=== PATIENT | male | born 1935 | race Caucasian/White ===

== ENCOUNTER 2017-10-18 07:46 | Emergency (ER) | payer MEDICARE ==
[2017-10-18 09:30] LABS: INR-International Normal Ratio 1.3; PTT 32.1 SEC (22.9-36.1); Prothrombin Time 16.1 SEC (12.0-14.7)
[2017-10-18 09:33] LABS: #Basophils 0.1 thou/uL (0.0-0.2); #Eosinphils 0.7 thou/uL (0.0-0.7); #Lymphocytes 4.3 thou/uL (1.20-3.40); #Neutrophils 4.9 thou/uL (1.40-6.50); %Basophils 0.5 % (0.0-1.0); %Eosinophils 6.8 % (0.0-10.0); %Lymphocytes 39.1 % (21.0-51.0); %Neutrophils 44.6 % (42.0-75.0); Hemoglobin 12.7 g/dL (14.0-18.0); Mean Corpuscular Hemoglobin 30.7 pg (27.0-31.0); Mean Corpuscular Volume 93.1 fl (80.0-94.0); Mean Platelet Volume 9.3 fL (7.4-10.4); Platelet Count 113 thou/uL (130-400); Red Blood Cell (RBC) Count 4.13 mill/uL (4.70-6.10); White Blood Cell (WBC) Count 10.9 thou/uL (4.8-10.8)
[2017-10-18 09:38] LABS: ALT (SGPT) 7 U/L (8-55); AST (SGOT) 17 U/L (5-34); Albumin 3.3 g/dL (3.4-4.8); Alkaline Phosphatase 45 U/L (40-150); Anion Gap 12 mmol/L (10-20); BUN (Urea Nitrogen) 18 mg/dL (8.4-25.7); Bilirubin, Total 0.6 mg/dL (0.2-1.2); Calc. Creatinine Clearance 0 mL/min (70-130); Calcium 9.2 mg/dL (7.8-10.44); Carbon Dioxide 29 mmol/L (23-31); Chloride 102 mmol/L (98-107); Estimated GFR-MDRD 67; Globulin 3.4 g/dL (2.4-3.5); Glucose 66 mg/dL (83-110); Potassium 4.8 mmol/L (3.5-5.1); Protein, Total 6.7 g/dL (5.8-8.1); Sodium 138 mmol/L (136-145)
--- NOTE | 2017-10-18 10:36 | RAD ---
RIGHT HIP 2 VIEWS: Date: 10/18/17 HISTORY: 81-year-old male with history of right hip pain, witnessed fall 3 days ago. FINDINGS: No evidence for acute fracture. Prominent vascular calcifications. Extensive postop changes in the pe lvis. Right hip joint arthrosis. IMPRESSION: Degenerative changes without fracture or dislocation. POS: [facility]
--- NOTE | 2017-10-18 10:37 | RAD ---
AP PELVIS 1 VIEW: Date: 10/18/17 HISTORY: Right hip pain, witnessed fall 3 days ago. COMPARISON: 09/19/16. FINDINGS: Degenerative changes of both hip joints and SI joints. Postsurgical changes in the pelvis. There are some nodular opacities overlying the left pelvis, which I feel are probably artifactual. IMPRESSION: Degenerative changes without fracture or dislocation. POS: [facility]
--- NOTE | 2017-10-18 10:41 | RAD ---
LEFT HIP 2 VIEWS: Date: 10/18/17 HISTORY: 81-year-old male with history of left hip pain with witnessed fall several days ago. FINDINGS: There is some nodular opacity overlying the left pelvis and hip region which is felt to probably be a rtifactual. Prominent vascular calcifications. Bone demineralization. Degenerative changes left hip j oint. No acute left hip fracture. IMPRESSION: No acute fracture. Degenerative changes. POS: [facility]
== END 2017-10-18 10:48 ==
LOC: ERS 07:46
DX: M16.11 Unilateral primary osteoarthritis, right hip (principal); F03.90 Unspecified dementia, unspecified severity, without behavioral disturbance, psychotic disturbance, mood disturbance, and anxiety; W07.XXXA Fall from chair, initial encounter
CPT/HCPCS: 36415; 72170; 80053; 85025; 85610; 85730; 86850; 86900; 86901

== ENCOUNTER 2018-05-30 13:41 | Observation (INO) | payer MEDICARE, MEDICAID ==
[2018-05-30 14:41] LABS: #Basophils 0.1 thou/uL (0.0-0.2); #Lymphocytes 4.7 thou/uL (1.20-3.40); #Monocytes 0.8 thou/uL (0.11-0.59); #Neutrophils 6.5 thou/uL (1.40-6.50); %Basophils 0.5 % (0.0-1.0); %Eosinophils 7.8 % (0.0-10.0); %Monocytes 6.3 % (0.0-10.0); %Neutrophils 49.4 % (42.0-75.0); Mean Corpuscular HGB CONC 33.4 g/dL (32.0-36.0); Mean Platelet Volume 10.9 fL (7.4-10.4); Platelet Count 138 thou/uL (130-400); Red Blood Cell (RBC) Count 4.18 mill/uL (4.70-6.10); White Blood Cell (WBC) Count 13.1 thou/uL (4.8-10.8)
--- NOTE | 2018-05-30 14:46 | RAD ---
FRONTAL RADIOGRAPH CHEST: DATE: 05/30/2018. COMPARISON: 02/18/2016. HISTORY: Dyspnea. FINDINGS: Mild pulmonary vascular prominence is noted, stable. Stable midline sternotomy wires and postsurgica l changes of the left shoulder noted. There is atherosclerotic calcification of the aortic arch. No pneumothorax, pleural fluid, focal con solidation, or alveolar edema. IMPRESSION: Stable appearance of the chest as detailed above. POS: [facility]
[2018-05-30 14:54] LABS: Digoxin Less than 0.15 ng/mL (0.8-2.0)
[2018-05-30] MEDS ORDERED: Dexamethasone 10 MG/ML VIAL ONE (15:38)
[2018-05-30] MEDS ORDERED: Acetaminophen 325 MG TAB PO PRN (15:43)
[2018-05-30] MEDS ORDERED: Ondansetron PF 4 MG/2 ML Vial IVP PRN (15:43)
[2018-05-30 16:36] LABS: Albumin 3.5 g/dL (3.4-4.8)
[2018-05-30 16:37] LABS: Chloride 104 mmol/L (98-107); Potassium 4.2 mmol/L (3.5-5.1)
[2018-05-30 16:38] LABS: Calcium 9.1 mg/dL (7.8-10.44); Sodium 139 mmol/L (136-145)
[2018-05-30 16:39] LABS: Globulin 3.6 g/dL (2.4-3.5); Glucose 125 mg/dL (83-110); Protein, Total 7.1 g/dL (5.8-8.1)
[2018-05-30 16:40] LABS: Anion Gap 14 mmol/L (10-20); Carbon Dioxide 25 mmol/L (23-31)
[2018-05-30 16:41] LABS: Bilirubin, Total 0.2 mg/dL (0.2-1.2)
[2018-05-30 16:42] LABS: Alkaline Phosphatase 51 U/L (40-150); Calc. Creatinine Clearance 0 mL/min (70-130); Estimated GFR-MDRD 68
[2018-05-30 16:43] LABS: Hemoglobin A1c 5.7 % (4.0-6.0)
[2018-05-30 16:43] LABS: BUN (Urea Nitrogen) 17 mg/dL (8.4-25.7)
[2018-05-30 16:44] LABS: AST (SGOT) 11 U/L (5-34)
[2018-05-30 16:45] LABS: ALT (SGPT) 8 U/L (8-55); CK (CPK) 23 U/L (30-200)
--- NOTE | 2018-05-30 17:15 | HP ---
CHIEF COMPLAINT: Shortness of breath. HISTORY OF PRESENT ILLNESS: This is an 82-year-old male, who is coming in from [facility] complaining of shortness of breath. EMS was called by the staff at the intermediate, was started on a CPAP, given DuoNeb, and brought to the ER. The patient was found to be stable. However, when the oxygen support was removed, the patient's saturations dropped to the low 80s. The patient apparently was requiring breathing treatment as well as IV fluids and supplemental oxygen to maintain saturations above 92%. Internal Medicine Team was consulted for consideration for admission. No family at bedside. Incidentally, the patient's son is in the ICU. Currently, septic at the same hospital. The patient otherwise does not have any other family or contact information listed anywhere. The patient has significant severe change in mental status due to baseline Alzheimer's and other history is not possible. History obtained from chart review as well as prior record admissions. ALLERGIES: TO BEANS, PEAS, AND PENICILLIN. PAST MEDICAL HISTORY: Positive for Alzheimer's, diabetes mellitus type 2, coronary artery disease, history of cerebrovascular accident in August 2011, arthritis, history of atrial fibrillation, hypertension. HOME MEDICATIONS: Please see MAR. SOCIAL HISTORY: Unobtainable. FAMILY HISTORY: Unobtainable. REVIEW OF SYSTEMS: Not possible given the patient's conditional status right now. PHYSICAL EXAMINATION: VITAL SIGNS: Blood pressure is 98/68, heart rate of 110, respiratory rate of 18, saturations of 100% on 3 L nasal cannula. GENERAL: The patient is lying in bed, in no acute distress. HEENT: Pupils are equal, round, reactive to light and accommodation. Extraocular muscles are intact. NECK: Supple. Mobile, nontender thyroid appreciated. CARDIOVASCULAR: Tachycardic rate with 2/6 systolic ejection murmur and no rubs or gallops appreciated. PULMONARY: No increase in AP diameter. Clear to auscultation bilaterally. ABDOMEN: Positive bowel sounds. Soft, nontender, nondistended. EXTREMITIES: 2+ pedal pulses noted. No edema noted. NEUROLOGIC: The patient is alert, oriented to person only. Otherwise, he is making mumbling sounds. Does not make any sense, not following commands. Does withdraw to pain. Does move his extremities. LABORATORY DATA: Laboratory robbins, CBC within normal limits. Slightly elevated white count of 13.1. Brain natriuretic peptide 212. Digoxin level less than 0.15. Basic metabolic panel is pending. IMAGING STUDIES: Chest x-ray shows no acute cardiopulmonary pathology. ASSESSMENT: 1. Shortness of breath. 2. Hypertension. 3. History of paroxysmal atrial fibrillation. 4. Hyperlipidemia. 5. History of cerebrovascular accident. 6. Coronary artery disease. 7. Vasculopathy. PLAN: 1. At this point in time, we will admit the patient to observation status. Provide the patient with DuoNeb and p.r.n. oxygen. 2. We will consult Case Management. The patient probably needs home O2 setup given that his oxygen saturations are dropping to the low 80s on room air. 3. We will monitor the patient. Obtain echocardiogram to rule out any cardiac dysfunction. Trend troponins and repeat troponins again tomorrow a.m. 4. If troponins are negative and echocardiogram comes back as normal, the patient can likely be discharged with home O2 setup if the patient qualifies. No family at bedside. Case and plan discussed with the ER attending as well as ER nurse. Nurse to call me if there are any questions or issues. The patient by default will end up remaining a full code. Job ID: [id number]
[2018-05-30] MEDS: Sodium Chloride 0.9% 1,000 ML IV SCH (18:05)
[2018-05-31 05:10] LABS: Anion Gap 15 mmol/L (10-20); BUN (Urea Nitrogen) 15 mg/dL (8.4-25.7); Calc. Creatinine Clearance 54 mL/min (70-130); Calcium 8.8 mg/dL (7.8-10.44); Carbon Dioxide 23 mmol/L (23-31); Chloride 106 mmol/L (98-107); Estimated GFR-MDRD 85; Glucose 107 mg/dL (83-110); Potassium 4.7 mmol/L (3.5-5.1); Sodium 139 mmol/L (136-145)
[2018-05-31 05:15] LABS: #Lymphocytes 1.7 thou/uL (1.20-3.40); #Monocytes 0.5 thou/uL (0.11-0.59); #Neutrophils 5.5 thou/uL (1.40-6.50); %Basophils 0.2 % (0.0-1.0); %Eosinophils 0.2 % (0.0-10.0); %Lymphocytes 21.9 % (21.0-51.0); %Monocytes 6.1 % (0.0-10.0); %Neutrophils 71.6 % (42.0-75.0); Hemoglobin 10.4 g/dL (14.0-18.0); Mean Corpuscular HGB CONC 33.4 g/dL (32.0-36.0); Mean Corpuscular Hemoglobin 30.6 pg (27.0-31.0); Mean Corpuscular Volume 91.7 fL (78.0-98.0); Mean Platelet Volume 10.4 fL (7.4-10.4); Platelet Count 90 thou/uL (130-400); Platelet Morphology Comment Appears Decreased; RBC Distribution Width 12.8 % (11.5-14.5); Red Blood Cell (RBC) Count 3.38 mill/uL (4.70-6.10); White Blood Cell (WBC) Count 7.7 thou/uL (4.8-10.8)
[2018-05-31] MEDS: Sodium Chloride 0.9% 1,000 ML IV SCH ×3 (06:17→22:15)
[2018-05-31] MEDS ORDERED: Prevnar 13-Val Conj/PF 0.5 ML SYRINGE IM ONE (09:00)
[2018-05-31] MEDS: Enoxaparin Sodium 40 MG/0.4 ML SYRINGE SC SCH ×2 (09:13→09:19)
[2018-05-31] MEDS: Famotidine 20 MG TAB PO SCH (09:14)
[2018-05-31 09:20] LABS: Troponin I Less than 0.010 ng/mL (< 0.028)
--- NOTE | 2018-05-31 13:41 | PDOC.PN ---
- Subjective Encounter Start Date: 05/31/18 Encounter Start Time: 13:39 -: non-verbal Subjective: Patient visibly sob when attempting to talk -: Denies any pain. Has remained afebrile. -: Reported coughing fits when eating, concern he might be aspirating. - Objective Vital Signs & Weight: Vital Signs (12 hours) Temp Pulse Resp BP Pulse Ox 05/31/18 11:24 98 F 70 20 104/63 93 L 05/31/18 07:44 97.3 F L 85 24 H 109/68 95 05/31/18 03:58 98.2 F 83 24 H 107/60 93 L Weight Weight 128 lb 8 oz I&O: 05/30/18 05/31/18 06/01/18 06:59 06:59 06:59 Intake Total 801 Balance 801 Result Diagrams: 05/31/18 04:21 05/31/18 04:21 Additional Labs: Accuchecks 05/31/18 05/31/18 05/30/18 10:32 04:03 21:12 POC Glucose 91 103 153 H Phys Exam - Physical Examination breathing appears slightly labored at rest HEENT: PERRLA Neck: no nodes, supple Respiratory: clear to auscultation bilateral Cardiovascular: RRR Gastrointestinal: soft, non-tender, no distention Musculoskeletal: no edema, pulses present Deviation from normal: Known dementia at baseline (Alzheimer's) Skin: no rash Dx/Plan (1) Shortness of breath Code(s): R06.02 - SHORTNESS OF BREATH Status: Acute (2) Coronary artery disease Code(s): I25.10 - ATHSCL HEART DISEASE OF [place] CORONARY ARTERY W/O ANG PCTRS Status: Chronic Qualifiers: Coronary Disease-Associated Artery/Lesion type: unspecified vessel or lesion type (3) Atrial fibrillation Code(s): I48.91 - UNSPECIFIED ATRIAL FIBRILLATION Status: Chronic Qualifiers: Atrial fibrillation type: chronic Qualified Code(s): I48.2 - Chronic atrial fibrillation (4) Dementia Code(s): F03.90 - UNSPECIFIED DEMENTIA WITHOUT BEHAVIORAL DISTURBANCE Status: Suspected Qualifiers: Dementia type: unspecified type (5) Hypertension Code(s): I10 - ESSENTIAL (PRIMARY) HYPERTENSION Status: Chronic Qualifiers: Hypertension type: essential hypertension Qualified Code(s): I10 - Essential (primary) hypertension - Plan cont current plan of care, speech therapy Speech therapy for swallowing assessment -: 1 of 2 blood cultures showed gram + cocci -: Remains afebrile with normal WBC and not on Abx. Await C&S. -: Repeat TNI normal. Awaiting Echo * .
[2018-05-31] MEDS: Carvedilol 3.125 MG TAB PO SCH (17:47)
[2018-06-01 05:49] LABS: #Eosinphils 0.3 thou/uL (0.0-0.7); #Lymphocytes 2.7 thou/uL (1.20-3.40); #Monocytes 0.6 thou/uL (0.11-0.59); #Neutrophils 4.2 thou/uL (1.40-6.50); %Basophils 0.5 % (0.0-1.0); %Eosinophils 4.3 % (0.0-10.0); %Lymphocytes 34.1 % (21.0-51.0); %Monocytes 7.5 % (0.0-10.0); %Neutrophils 53.6 % (42.0-75.0); Hemoglobin 11.6 g/dL (14.0-18.0); Mean Corpuscular HGB CONC 33.3 g/dL (32.0-36.0); Mean Corpuscular Hemoglobin 30.4 pg (27.0-31.0); Mean Corpuscular Volume 91.2 fL (78.0-98.0); Mean Platelet Volume 10.2 fL (7.4-10.4); Platelet Count 98 thou/uL (130-400); RBC Distribution Width 12.8 % (11.5-14.5); Red Blood Cell (RBC) Count 3.84 mill/uL (4.70-6.10); White Blood Cell (WBC) Count 7.9 thou/uL (4.8-10.8)
[2018-06-01 06:12] LABS: Troponin I 0.018 ng/mL (< 0.028)
[2018-06-01] MEDS ORDERED: Digoxin 0.125 MG TAB PO SCH (09:00)
[2018-06-01] MEDS ORDERED: Aspirin 81 mg Enteric Coated Tablet PO SCH (09:00)
[2018-06-01 09:12] LABS: ALT (SGPT) 7 U/L (8-55); AST (SGOT) 15 U/L (5-34); Albumin 3.2 g/dL (3.4-4.8); Alkaline Phosphatase 45 U/L (40-150); Anion Gap 15 mmol/L (10-20); BUN (Urea Nitrogen) 16 mg/dL (8.4-25.7); Bilirubin, Total 0.4 mg/dL (0.2-1.2); Calc. Creatinine Clearance 47 mL/min (70-130); Calcium 9.1 mg/dL (7.8-10.44); Carbon Dioxide 22 mmol/L (23-31); Chloride 109 mmol/L (98-107); Estimated GFR-MDRD 74; Globulin 3.3 g/dL (2.4-3.5); Glucose 84 mg/dL (83-110); Potassium 4.2 mmol/L (3.5-5.1); Protein, Total 6.5 g/dL (5.8-8.1); Sodium 142 mmol/L (136-145)
--- NOTE | 2018-06-01 09:52 | CON ---
DATE OF CONSULTATION: HISTORY OF PRESENT ILLNESS: The patient is an 82-year-old gentleman with a history of hypertension and dementia, who presented with dyspnea. The patient is unable to give any type of coherent history. The patient has apparently undergone coronary artery bypass graft surgery x6. He also has a history of atrial fibrillation and also has a history of cerebrovascular accident. The patient has chronic atrial fibrillation. The patient was admitted with dyspnea. He was found to be markedly hypoxic and admitted for further evaluation. PAST MEDICAL HISTORY: 1. Coronary artery disease. 2. Atrial fibrillation. 3. Hypertension. PAST SURGICAL HISTORY: Coronary artery bypass surgery. ALLERGIES: PENICILLIN, PEAS, AND BEANS. SOCIAL HISTORY: Unobtainable. FAMILY HISTORY: Unobtainable. MEDICATIONS: 1. Plavix 75 daily. 2. Aspirin 325 daily. 3. Lisinopril 2.5 daily. 4. Pepcid 20 daily. 5. Prozac 10 daily. 6. Digoxin 0.125 daily. 7. Metformin 500 b.i.d. 8. Zocor 20 at bedtime. 9. Seroquel 25 mg at bedtime. REVIEW OF SYSTEMS: Not obtainable. PHYSICAL EXAMINATION: GENERAL: An elderly gentleman, in no acute distress. VITAL SIGNS: Blood pressure 117/78. NECK: Showed no jugular venous distention. LUNGS: Coarse breath sounds bilateral. HEART: Regular rate and rhythm. Normal S1 and S2. 2/6 systolic murmur. ABDOMEN: Nondistended. EXTREMITIES: Showed trace edema. LABORATORY DATA: Showed sodium 139, potassium 4.7, chloride 106, bicarbonate 23 , BUN 15, creatinine 0.86, glucose is 107. Troponin 0.01. White blood cell count 7.7, hemoglobin 10.4, hematocrit 31.0, platelets were 90. DIAGNOSTIC DATA: His EKG revealed him to have atrial fibrillation with a nonspecific T-wave abnormality. His echocardiogram revealed moderately decreased left ventricular ejection fraction of 30% to 40% and possible aortic stenosis. ASSESSMENT AND PLAN: This gentleman presents with dyspnea. He has severe dementia. From a cardiac standpoint, we would recommend conservative therapy. We would treat the patient with Coreg to control his heart rate. We would continue the patient on Aspirin and Plavix. We will follow this patient with you through his hospitalization. Job ID: [id number] [facility]
--- NOTE | 2018-06-01 10:49 | PDOC.PN ---
- Subjective Encounter Start Date: 06/01/18 Encounter Start Time: 10:45 -: non-verbal Subjective: Patient resting comfortably. Breathing appears improved -: Unable to obtain a history from him due to dementia. -: Does not appear to be in any distress - Objective Vital Signs & Weight: Vital Signs (12 hours) Temp Pulse Resp BP Pulse Ox 06/01/18 07:32 98.6 F 53 L 18 139/72 94 L 06/01/18 05:33 77 12 06/01/18 03:07 97.5 F L 68 20 136/90 96 05/31/18 23:14 98.2 F 65 20 134/90 94 L Weight Weight 127 lb 14.4 oz I&O: 05/31/18 06/01/18 06/02/18 06:59 06:59 06:59 Intake Total 801 1334 Output Total 225 Balance 801 1109 Result Diagrams: 06/01/18 05:13 06/01/18 05:13 Additional Labs: Accuchecks 06/01/18 05/31/18 05/31/18 05:16 20:47 17:02 POC Glucose 83 107 97 05/31/18 10:32 POC Glucose 91 Phys Exam - Physical Examination Constitutional: NAD HEENT: PERRLA, moist MMs, oral pharynx no lesions Neck: no nodes, supple, full ROM Respiratory: clear to auscultation bilateral Cardiovascular: RRR Gastrointestinal: soft, non-tender, no distention Musculoskeletal: no edema, pulses present Neurological: moves all 4 limbs Deviation from normal: Pleasantly demented Skin: no rash Dx/Plan (1) Shortness of breath Code(s): R06.02 - SHORTNESS OF BREATH Status: Acute (2) Coronary artery disease Code(s): I25.10 - ATHSCL HEART DISEASE OF [place] CORONARY ARTERY W/O ANG PCTRS Status: Chronic Qualifiers: Coronary Disease-Associated Artery/Lesion type: unspecified vessel or lesion type (3) Atrial fibrillation Code(s): I48.91 - UNSPECIFIED ATRIAL FIBRILLATION Status: Chronic Qualifiers: Atrial fibrillation type: chronic Qualified Code(s): I48.2 - Chronic atrial fibrillation (4) Dementia Code(s): F03.90 - UNSPECIFIED DEMENTIA WITHOUT BEHAVIORAL DISTURBANCE Status: Suspected Qualifiers: Dementia type: unspecified type (5) Hypertension Code(s): I10 - ESSENTIAL (PRIMARY) HYPERTENSION Status: Chronic Qualifiers: Hypertension type: essential hypertension Qualified Code(s): I10 - Essential (primary) hypertension (6) Thrombocytopenia Code(s): D69.6 - THROMBOCYTOPENIA, UNSPECIFIED Status: Acute - Plan cont current plan of care, DVT proph w/SCDs Lovenox discontinued. -: IV fluids discontinued -: Conservative management as per Cardiology (Statin and plavix) -: Lisinopril 2.5 mg PO as per Dr. Sloan. -: Blood cultures 1 of 2 positive for coag neg staph, likely contaminant. For possible discharge today. Will discuss with Dr. Sloan.
[2018-06-01] MEDS: Famotidine 20 MG TAB PO SCH (12:14)
[2018-06-01] MEDS: Carvedilol 3.125 MG TAB PO SCH (12:16)
[2018-06-01] MEDS: Enoxaparin Sodium 40 MG/0.4 ML SYRINGE SC SCH (12:17)
[2018-06-01 13:58] VITALS: BMI 22.6
[2018-06-01 16:08] VITALS: BP 120/67; TEMP 98.1
[2018-06-01] MEDS ORDERED: FLUoxetine HCl 10 MG CAP PO SCH (21:00)
[2018-06-01] MEDS ORDERED: Atorvastatin Calcium 10 MG TAB PO SCH (21:00)
[2018-06-02] MEDS ORDERED: Lisinopril 2.5 MG TAB PO SCH (09:00)
[2018-06-02] MEDS ORDERED: Fish Oil 1,000 MG CAP PO SCH (09:00)
--- NOTE | 2018-06-02 14:07 | DIS ---
DATE OF ADMISSION: 05/30/2018 DATE OF DISCHARGE: 06/01/2018 CHIEF COMPLAINT: Shortness of breath with low saturations. DISCHARGE DIAGNOSES: 1. Shortness of breath, resolved. 2. Coronary artery disease. 3. Heart failure. 4. Atrial fibrillation. 5. Dementia. 6. Hypertension. CONSULTING PHYSICIANS: Dr. Osei of Cardiology. HOSPITAL COURSE AND REVIEW OF SYSTEMS: Mr. Skinner is a pleasantly demented 82-year-old man who presented with shortness of breath and low saturations in the 80s on room air from [facility]. He has a known history of paroxysmal AF, hypertension, and coronary artery disease as well as Alzheimer's. The patient underwent initial investigations in the ED including a chest x-ray which showed no acute changes. There was mild pulmonary vascular prominence with stable midline sternotomy wires and postsurgical changes in the left shoulder. Atherosclerotic calcification of the aortic arch was seen. Otherwise, no pneumothorax, pleural fluid, consolidation, or edema. He had laboratory studies notable for a white count of 13.1 on initial presentation; however, throughout his hospital stay, his white count was normal. He had chemistries done showing normal electrolytes and stable renal function with an EGFR that was initially 68 and improved to 85. LFTs unremarkable. He had troponins that were also unremarkable. A CK was done initially which was 23. The patient had a BNP of 212. An ECG was done which was normal. He underwent an echocardiogram notable for an EF of 30% to 40%. The left atrium was moderately dilated. Left ventricular size normal. Individual aortic valve leaflets not clearly visualized. Aortic stenosis present. Mild to moderate mitral regurgitation also seen. Moderate to severe tricuspid regurgitation. This study was felt to be suboptimal and a TRAE was suggested to better evaluate aortic stenosis; however, this was deferred. The patient was seen by Dr. Osei who felt that from a cardiac standpoint he should receive conservative therapy. He advised to continue with Coreg to control the patient's heart rate and place the patient on aspirin as well as Plavix. Otherwise, no further investigations or interventions recommended. The patient did have notable improvement with saturations and shortness of breath. On day of discharge, he had O2 sats of 95% on room air. On day of discharge, difficult to assess for review of systems given degree of dementia and the fact the patient is nonverbal. He does, however, appear pleasant and in no acute distress. He is visibly less short of breath than he was on initial admission. No longer with labored breathing. PHYSICAL EXAMINATION: VITAL SIGNS: Temperature 98.1, pulse 69, respirations 18, O2 saturation 95% on room air, and BP 120/67. HEENT: Normocephalic and atraumatic. Pupils are equal, round, and reactive to light. Sclerae are anicteric. Oropharynx is clear. NECK: Supple without lymphadenopathy. LUNGS: Clear to auscultation bilaterally. CARDIAC: Regular rate and rhythm. ABDOMEN: Soft, nontender, and nondistended. Normal bowel sounds present. EXTREMITIES: No clubbing, cyanosis, or edema. SKIN: Without rash or jaundice. LABORATORY DATA: White blood count 7.7, hemoglobin 10.4, hematocrit 31, and platelets 90. Sodium 139, potassium 4.7, BUN 15, creatinine 0.86, GFR 85, hemoglobin A1c 5.7, calcium 8.8. LFTs unremarkable. IMAGING DATA: 1. Chest x-ray, 05/30/2018. Stable appearance of the chest. 2. Echocardiogram, 05/31/2018. Suboptimal study due to poor echocardiographic window. EF 30% to 40%. Moderately dilated left atrium. Left ventricle size normal. Individual aortic valve leaflets not clearly seen. Aortic stenosis. TRAE advised to better evaluate aortic stenosis. Mild to moderate mitral regurgitation present. Moderate to severe tricuspid regurgitation. DISCHARGE MEDICATIONS: Prescription given for Coreg 3.125 mg p.o. b.i.d. The patient otherwise advised to continue regular home medications including the following. 1. Aspirin 325 mg p.o. daily. 2. Plavix 75 mg p.o. daily. 3. Digoxin 0.125 mg p.o. daily. 4. Famotidine 20 mg p.o. at bedtime. 5. Fish oil 1000 mg p.o. daily. 6. Fluoxetine 10 mg p.o. at bedtime. 7. Insulin detemir 20 units subcutaneously at bedtime. 8. Lisinopril 2.5 mg p.o. daily. 9. Metformin 500 mg p.o. b.i.d. 10. Quetiapine 25 mg p.o. at bedtime. 11. Simvastatin 20 mg p.o. at bedtime. 12. Tramadol 50 mg p.o. b.i.d. 13. Ubidecarenone 50 mg p.o. daily. CONDITION: Stable at discharge. DIET: Heart healthy/diabetic diet. ACTIVITY: Falls precaution. FOLLOWUP: The patient will return to [facility]. He will follow up with primary care physician, Dr. Violeta Jacques. DISPOSITION: Cleared for discharge back to [facility] on 06/01/2018. The patient's case was discussed with Dr. Sloan, who agrees with plan of care as described above. Job ID: [id number]
--- NOTE | 2018-06-05 13:46 | EKG ---
Test Reason : RAHUL Blood Pressure : / mmHG Vent. Rate : 090 BPM Atrial Rate : 107 BPM P-R Int : 000 ms QRS Dur : 066 ms QT Int : 340 ms P-R-T Axes : 000 039 -31 degrees QTc Int : 415 ms Atrial fibrillation Low voltage QRS Nonspecific ST and T wave abnormality , probably digitalis effect Abnormal ECG Confirmed by HARRIETT KAY MD ([id number]), editorial manager ELIZA ORDAZ ([id number]) on 06/05/2018 1:46:08 PM Referred By: Confirmed By:HARRIETT KAY MD
== END 2018-06-01 18:55 ==
LOC: ERS 13:41 → ERHOLD 15:47 → 2SW 18:05
PROVIDERS: ADMIT Internal Medicine; ATTEND Internal Medicine
DX: R06.02 Shortness of breath (principal); I25.10 Atherosclerotic heart disease of native coronary artery without angina pectoris; I11.0 Hypertensive heart disease with heart failure; I50.9 Heart failure, unspecified; I48.0 Paroxysmal atrial fibrillation; I48.2 Chronic atrial fibrillation; M19.90 Unspecified osteoarthritis, unspecified site; G30.9 Alzheimer's disease, unspecified; F02.80 Dementia in other diseases classified elsewhere, unspecified severity, without behavioral disturbance, psychotic disturbance, mood disturbance, and anxiety; D69.6 Thrombocytopenia, unspecified; Z86.73 Personal history of transient ischemic attack (TIA), and cerebral infarction without residual deficits; Z79.02 Long term (current) use of antithrombotics/antiplatelets; Z79.82 Long term (current) use of aspirin; Z79.84 Long term (current) use of oral hypoglycemic drugs; Z79.899 Other long term (current) drug therapy; Z88.0 Allergy status to penicillin; Z91.018 Allergy to other foods; Z95.1 Presence of aortocoronary bypass graft
CPT/HCPCS: 71045; 80048; 80053 ×2; 80162; 82550; 82962 ×3; 83036; 83880; 84484 ×3; 85025 ×3; 87040; 87149 ×2; 87804 ×2; 93005; 93306; 94640 ×3; 94760; 96361 ×4; 96365; 96375; 97139; 99285; G0378 ×2; 36415; 36416; J1100; J1650; J1956; J7620

== ENCOUNTER → 2018-10-22 | Day surgery (SDC) | payer MEDICARE, MEDICAID ==
[2018-10-21 16:11] VITALS: BMI 26.6
--- NOTE | 2018-10-21 22:17 | HP ---
HISTORY OF PRESENT ILLNESS: This is an 82-year-old male referred to me by Dr. Ordonez for EGD and PEG tube placement. The patient is known to have Alzheimer dementia, hypertension, diabetes mellitus. He also has history of coronary artery disease, past history of CVA recovery. The patient is a long-term resident. He is eating less and less over the last several weeks. The patient referred to me by Dr. Ordonez for an EGD and PEG tube placement. ALLERGIES: DRUG ALLERGY IS PENICILLIN. FOOD ALLERGY BEANS AND PEAS. MEDICAL ILLNESS: 1. Hypertension. 2. Diabetes mellitus. 3. Possible CVA. 4. Coronary artery disease. 5. Atrial fibrillation. 6. Dementia. CURRENT MEDICATIONS: Include: 1. Simvastatin. 2. Tramadol. 3. Metformin. 4. Lisinopril. 5. Insulin. 6. Digoxin. 7. He was also on Plavix, which was stopped 5 days ago. PHYSICAL EXAMINATION: GENERAL: He is awake. VITAL SIGNS: His vital signs are stable. HEENT: Conjunctivae clear. NECK: Supple. CARDIOVASCULAR: First and second sounds normal. LUNGS: Clear to auscultation. ABDOMEN: Soft and nondistended. Abdomen is nontender. No organomegaly or masses. ADMITTING DIAGNOSES: An 82-year-old male with dementia, failure to thrive, dysphagia. PLAN: EGD and PEG tube placement. Job ID: [id number]
[~2018-10-22] MED LIST: Levofloxacin 500 mg/D5W 100 ml Premix Bag ONE
--- NOTE | 2018-10-22 15:11 | OP ---
DATE OF PROCEDURE: 10/22/2018 PROCEDURE PERFORMED: Esophagogastroduodenoscopy with endoscopic gastrostomy tube placement. PREOPERATIVE DIAGNOSES: 1. Dysphagia. 2. Failure to thrive. 3. Dementia. POSTOPERATIVE DIAGNOSIS: 1. Normal exam. No pathology seen in the stomach or the duodenum. 2. Successful placement of the gastrostomy tube without any difficulty. DESCRIPTION OF PROCEDURE: The patient was placed on his back and was given sedation by Anesthesia Department. The patient was given IV Levaquin before the procedure. A Pentax video gastroscope under direct vision passed down the oropharynx, past the GE junction into stomach, and subsequently into the duodenum. The esophageal mucosa was normal. In the GE junction, no pathology. In the fundus and cardia, gastric body, gastric antrum, and duodenum, no pathology. The patient has had a PEG tube placement done and the tube placement was above the previous G-tube scar area. The tube position was confirmed by transillumination. The area was cleaned and surgically prepped. The area was anesthetized with 1% lidocaine infiltration. Over the area, a size 16 Angiocath was advanced into the stomach. Through the Angiocath, a guidewire was advanced into the stomach. This was grasped with polypectomy snare and pulled outside the mouth. To the end of the guidewire protruding outside the mouth, the gastrostomy tube was connected. The wire was pulled back retrograde and the tube left in place. The patient re-scoped again to confirm proper placement of G-tube. No complication noted and the stomach decompressed and the scope was removed. DISCHARGE PLANNING: This is an 82-year-old male, referred for an EGD and PEG tube placement. He underwent EGD and PEG tube placement without difficulty. He did well postprocedure. He will be discharged back to [facility]. You can start the tube feeding later time this afternoon. Job ID: [id number] [facility]
== END ==
LOC: SDC 10:00
PROVIDERS: ATTEND Internal Medicine Gastroenterology
PROC: 0DH63UZ Insertion of Feeding Device into Stomach, Percutaneous Approach (ICD-10-PCS; principal; 2018-10-22)
DX: R13.10 Dysphagia, unspecified (principal); R62.7 Adult failure to thrive; I10 Essential (primary) hypertension; E11.9 Type 2 diabetes mellitus without complications; I25.10 Atherosclerotic heart disease of native coronary artery without angina pectoris; I48.91 Unspecified atrial fibrillation; G30.9 Alzheimer's disease, unspecified; F02.80 Dementia in other diseases classified elsewhere, unspecified severity, without behavioral disturbance, psychotic disturbance, mood disturbance, and anxiety; Z68.26 Body mass index [BMI] 26.0-26.9, adult; Z86.73 Personal history of transient ischemic attack (TIA), and cerebral infarction without residual deficits; Z79.02 Long term (current) use of antithrombotics/antiplatelets; Z79.82 Long term (current) use of aspirin; Z79.84 Long term (current) use of oral hypoglycemic drugs; Z79.899 Other long term (current) drug therapy; Z88.0 Allergy status to penicillin; Z91.018 Allergy to other foods
CPT/HCPCS: J1956